=== PATIENT | male | born 1955 | race Caucasian/White ===

== ENCOUNTER 2022-01-11 09:55 | Outpatient (CLI) | payer BC | END 2022-01-11 09:56 | disposition home or self-care (01) | LOC: LABBT 09:55 | PROVIDERS: ATTEND Ophthalmology Retina Specialist | DX: H33.22 Serous retinal detachment, left eye (principal); H54.7 Unspecified visual loss; Z20.822 Contact with and (suspected) exposure to COVID-19 | CPT/HCPCS: 87811 ==

== ENCOUNTER 2022-01-12 09:23 | Day surgery (SDC) | payer BC ==
[2022-01-11 11:30] VITALS: BMI 36.9
[~2022-01-12 09:23] MED LIST: Fluorouracil 100 MG, Enoxaparin Sodium 25 MG, EPINEPHrine 0.3 MG in Ophthalmic Irrigati... IRR SCH; Midazolam HCl 2 mg/2 ml Vial ONE; fentaNYL Citrate/PF 100 MCG/2 ML SYRINGE ONE
[2022-01-12] MEDS ORDERED: Fluorouracil 100 MG, Enoxaparin Sodium 25 MG, EPINEPHrine 0.3 MG in Ophthalmic Irrigati... IRR SCH (10:30)
[2022-01-12] MEDS ORDERED: Cyclopentolate 1% Opth Drop 2 ML BOT ONE (10:47)
[2022-01-12] MEDS ORDERED: Phenylephrine 2.5% Ophth Soln 5 ML BOT ONE (10:47)
[2022-01-12] MEDS ORDERED: CEFAZOLIN 1 GM VIAL ONE (11:35)
[2022-01-12] MEDS ORDERED: Lidocaine 4% PF 5 ML AMP ONE (11:35)
[2022-01-12] MEDS ORDERED: PROPOFOL 200 MG/20 ML VIAL ONE (11:35)
[2022-01-12] MEDS ORDERED: Triamcinolone 40 MG/ML VIAL ONE (11:35)
[2022-01-12] MEDS ORDERED: Maxitrol 0.1% Opth Oint 3.5 GM TUBE ONE (11:35)
[2022-01-12] MEDS ORDERED: Lidocaine 1% MPF 2 ML VIAL ONE (11:35)
[2022-01-12] MEDS ORDERED: Enoxaparin Sodium 30 MG/0.3 ML SYRINGE ONE (11:35)
[2022-01-12] MEDS ORDERED: Bupivacaine 0.75% 10 ML VIAL ONE (11:35)
== END 2022-01-12 13:30 | disposition home or self-care (01) ==
LOC: SDC 09:23
PROVIDERS: ATTEND Ophthalmology Retina Specialist
PROC: 08QF3ZZ Repair Left Retina, Percutaneous Approach (ICD-10-PCS; principal; 2022-01-12)
PROC: 08T53ZZ Resection of Left Vitreous, Percutaneous Approach (ICD-10-PCS; principal; 2022-01-12)
DX: H33.012 Retinal detachment with single break, left eye (principal); I10 Essential (primary) hypertension; E78.5 Hyperlipidemia, unspecified; I25.10 Atherosclerotic heart disease of native coronary artery without angina pectoris; E66.9 Obesity, unspecified; Z68.36 Body mass index [BMI] 36.0-36.9, adult; Z86.16 Personal history of COVID-19; Z79.02 Long term (current) use of antithrombotics/antiplatelets; Z79.84 Long term (current) use of oral hypoglycemic drugs; Z79.899 Other long term (current) drug therapy; Z95.1 Presence of aortocoronary bypass graft
CPT/HCPCS: 67025; J0171; J0690; J1650; J2250; J2704; J3301; J3490; J9190

== ENCOUNTER 2022-12-28 07:13 | Day surgery (SDC) | payer MEDICARE ==
[2022-12-27 10:34] VITALS: BMI 37.5
[~2022-12-28 07:13] MED LIST changes: +Fluorouracil 100 MG, Enoxaparin 25 MG, EPINEPHrine 0.3 MG in Ophthalmic Irrigation Solu... IRR SCH; -Fluorouracil 100 MG, Enoxaparin Sodium 25 MG, EPINEPHrine 0.3 MG in Ophthalmic Irrigati... IRR SCH; +fentaNYL 50 mcg/mL 1 mL Vial ONE; -fentaNYL Citrate/PF 100 MCG/2 ML SYRINGE ONE
[2022-12-28] MEDS ORDERED: PHENYLephrine 2.5% Ophth Soln 15 ml Bottle ONE (07:39)
[2022-12-28] MEDS ORDERED: Cyclopentolate 2% Opth Drop 15 ML BOT ONE (07:39)
[2022-12-28] MEDS ORDERED: Lidocaine 1% PF 5 ML VIAL ONE (09:22)
[2022-12-28] MEDS ORDERED: PROPOFOL 200 MG/20 ML VIAL ONE (09:22)
[2022-12-28] MEDS ORDERED: Bupivacaine 0.75% 10 ML VIAL ONE (09:22)
[2022-12-28] MEDS ORDERED: CEFAZOLIN 1 GM VIAL ONE (09:22)
[2022-12-28] MEDS ORDERED: Indocyanine Green 25 MG/10 ML VIAL ONE (09:22)
[2022-12-28] MEDS ORDERED: Lidocaine 4% PF 5 ML AMP ONE (09:22)
[2022-12-28] MEDS ORDERED: Maxitrol 0.1% Opth Oint 3.5 GM TUBE ONE (09:22)
[2022-12-28] MEDS ORDERED: Triamcinolone 40 MG/ML VIAL ONE (09:22)
== END 2022-12-28 11:08 | disposition home or self-care (01) ==
LOC: SDC 07:13
PROVIDERS: ATTEND Ophthalmology Retina Specialist
PROC: 08T53ZZ Resection of Left Vitreous, Percutaneous Approach (ICD-10-PCS; principal; 2022-12-28)
DX: H35.342 Macular cyst, hole, or pseudohole, left eye (principal)
CPT/HCPCS: 67025; 67042; J3010; J0171; J0690; J1650; J2250; J2704; J3301; J3490; J9190